=== PATIENT | female | born 1990 | race Caucasian/White ===

== ENCOUNTER → 2024-02-06 11:04 | Outpatient (REF) | payer BC, SELFPAY ==
[2024-02-13 21:24] LABS: HPV, High Risk Not Detected; HPV, High Risk Source Cervical
[2024-02-14 07:49] LABS: Chlamydia trachomatis,ThinPrep Negative (Negative); Neisseria gonorrhoeae,ThinPrep Negative (Negative); Specimen Source Cervical
== END ==
LOC: CPAP 11:04
PROVIDERS: ATTENDING PHYSICIAN Nurse Practitioner Family
DX: Z34.91 Encounter for supervision of normal pregnancy, unspecified, first trimester (principal); Z12.4 Encounter for screening for malignant neoplasm of cervix; Z11.51 Encounter for screening for human papillomavirus (HPV); Z11.3 Encounter for screening for infections with a predominantly sexual mode of transmission
CPT/HCPCS: 87491; 87591; 87624; G0123

== ENCOUNTER → 2024-02-11 07:38 | Outpatient (REF) | payer BC, SELFPAY ==
[2024-02-11 08:46] LABS: Urine Albumin Negative (Neg - Trace); Urine Bilirubin Negative (Negative); Urine Character Clear (Clear); Urine Color Yellow; Urine Glucose Negative (Negative); Urine Ketone Negative (Negative); Urine Leukocyte Negative (Negative); Urine Nitrite Negative (Negative); Urine Occult Blood Negative (Negative); Urine Specific Gravity 1.025 (<1.030); Urine Urobilinogen Negative (Neg - 1+)
[2024-02-11 08:51] LABS: % Basophils 0.7 % (0-2); % Eosinophils 1.2 % (0-6); % Immature Granulocytes 0.4 % (0-0.5); % Lymphocytes 23.6 % (20.5-51.1); % Monocytes 6.9 % (1.7-9.3); % Neutrophils 67.2 % (42.2-75.2); Absolute Basophils 0.1 10^3/uL (0-0.2); Absolute Eosinophils 0.1 10^3/uL (0-0.7); Absolute Lymphocytes 1.8 10^3/uL (1.2-3.4); Absolute Monocytes 0.5 10^3/uL (0.1-0.6); Absolute Neutrophils 5.1 10^3/uL (1.4-6.5); Hematocrit 37.6 % (37.0-47.0); Hemoglobin 12.6 g/dL (12.0-16.0); Mean Corp Hgb Conc. 33.5 g/dL (33.0-37.0); Mean Corpuscular Hgb 26.3 pg (27.0-31.0); Mean Corpuscular Volume 78.3 fL (81.0-99.0); Mean Platelet Volume 10.1 fL (7.4-10.4); Nucleated Red Blood Cells % 0 %; Platelet Count 355 10^3/uL (130-400); White Blood Cell Count 7.6 10^3/uL (4.8-10.8)
[2024-02-11 13:47] LABS: Glycohemoglobin (HgbA1c) 5.8 % (4.0-5.6)
[2024-02-12 18:34] LABS: Hepatitis B Surface Antigen Negative (Negative)
[2024-02-12 18:51] LABS: Hepatitis C Antibody Negative (Negative)
[2024-02-12 19:28] LABS: Rubella Positive
[2024-02-13 13:45] LABS: Syphilis/T. pallidum Ab Reflex Negative (Negative)
== END ==
LOC: REG 07:38
PROVIDERS: ATTENDING PHYSICIAN Nurse Practitioner Family
DX: Z32.01 Encounter for pregnancy test, result positive (principal)
CPT/HCPCS: 36415; 80055; 81003; 83036; 86803; 86850; 86900; 86901; 87086

== ENCOUNTER → 2024-03-24 07:54 | Outpatient (REF) | payer BC, SELFPAY | LOC: PNTC 07:54 | PROVIDERS: ATTENDING PHYSICIAN Obstetrics & Gynecology | DX: Z36.0 Encounter for antenatal screening for chromosomal anomalies (principal); Z36.82 Encounter for antenatal screening for nuchal translucency | CPT/HCPCS: 36415; 76801; 76813 ==

== ENCOUNTER → 2024-04-15 07:53 | Outpatient (REF) | payer BC, SELFPAY | LOC: PNTC 07:53 | PROVIDERS: ATTENDING PHYSICIAN Obstetrics & Gynecology | DX: O99.210 Obesity complicating pregnancy, unspecified trimester (principal) | CPT/HCPCS: 76805 ==

== ENCOUNTER → 2024-05-11 07:45 | Outpatient (REF) | payer BC, SELFPAY ==
[2024-05-11 11:05] LABS: 1 Hour after 50gm 127 mg/dl
[2024-05-11 12:40] LABS: HIV Combo Negative (Negative)
== END ==
LOC: REG 07:45
PROVIDERS: ATTENDING PHYSICIAN Obstetrics & Gynecology; FAMILY PHYSICIAN Physician Assistant
DX: Z34.82 Encounter for supervision of other normal pregnancy, second trimester (principal)
CPT/HCPCS: 36415; 82950; 87389

== ENCOUNTER → 2024-05-17 07:54 | Outpatient (REF) | payer BC, SELFPAY | LOC: PNTC 07:54 | PROVIDERS: ATTENDING PHYSICIAN Obstetrics & Gynecology | DX: O99.210 Obesity complicating pregnancy, unspecified trimester (principal) | CPT/HCPCS: 76811 ==

== ENCOUNTER → 2024-06-23 15:42 | Outpatient (REF) | payer BC, SELFPAY | LOC: PNTC 15:42 | PROVIDERS: ATTENDING PHYSICIAN Obstetrics & Gynecology | DX: O99.210 Obesity complicating pregnancy, unspecified trimester (principal) | CPT/HCPCS: 76816 ==

== ENCOUNTER → 2024-07-12 08:33 | Outpatient (REF) | payer BC, SELFPAY ==
[2024-07-12 10:17] LABS: % Basophils 0.2 % (0-2); % Immature Granulocytes 0.6 % (0-0.5); % Lymphocytes 17.2 % (20.5-51.1); % Monocytes 6.4 % (1.7-9.3); % Neutrophils 74.6 % (42.2-75.2); Absolute Eosinophils 0.1 10^3/uL (0-0.7); Absolute Immature Granulocytes 0.1 10^3/uL (0-0.05); Absolute Lymphocytes 1.6 10^3/uL (1.2-3.4); Absolute Monocytes 0.6 10^3/uL (0.1-0.6); Absolute Neutrophils 6.9 10^3/uL (1.4-6.5); Hematocrit 32.4 % (37.0-47.0); Hemoglobin 10.5 g/dL (12.0-16.0); Mean Corp Hgb Conc. 32.4 g/dL (33.0-37.0); Mean Corpuscular Hgb 26.4 pg (27.0-31.0); Mean Corpuscular Volume 81.6 fL (81.0-99.0); Mean Platelet Volume 9.7 fL (7.4-10.4); Nucleated Red Blood Cells % 0 %; Platelet Count 279 10^3/uL (130-400); Red Blood Cell Count 3.97 10^6/uL (4.20-5.40); Red Cell Dist. Width 13.7 % (11.5-14.5); White Blood Cell Count 9.3 10^3/uL (4.8-10.8)
[2024-07-12 11:35] LABS: 1 Hour after 50gm 129 mg/dl
[2024-07-12 12:16] LABS: HIV Combo Negative (Negative)
[2024-07-13 12:38] LABS: Syphilis/T. pallidum Ab Reflex Negative (Negative)
== END ==
LOC: REG 08:33
PROVIDERS: ATTENDING PHYSICIAN Obstetrics & Gynecology; FAMILY PHYSICIAN Physician Assistant
DX: Z34.80 Encounter for supervision of other normal pregnancy, unspecified trimester (principal)
CPT/HCPCS: 36415; 82950; 85025; 86780; 87389

== ENCOUNTER → 2024-08-03 07:59 | Outpatient (REF) | payer BC, SELFPAY | LOC: PNTC 07:59 | PROVIDERS: ATTENDING PHYSICIAN Obstetrics & Gynecology | DX: O99.210 Obesity complicating pregnancy, unspecified trimester (principal) | CPT/HCPCS: 76816 ==

== ENCOUNTER → 2024-09-02 08:19 | Outpatient (REF) | payer BC, SELFPAY | LOC: CLAB 08:19 | PROVIDERS: ATTENDING PHYSICIAN Student in an Organized Health Care Education/Training Program | DX: Z36.85 Encounter for antenatal screening for Streptococcus B (principal) | CPT/HCPCS: 87070 ==

== ENCOUNTER 2024-09-28 19:46 | Inpatient (IN) | payer BC, SELFPAY ==
[2024-09-28 19:49] VITALS: BMI 33.6
[2024-09-28 20:53] VITALS: BP 118/77
[2024-09-28 20:56] LABS: % Basophils 0.3 % (0-2); % Eosinophils 0.9 % (0-6); % Immature Granulocytes 0.3 % (0-0.5); % Lymphocytes 15.6 % (20.5-51.1); % Monocytes 9.5 % (1.7-9.3); % Neutrophils 73.4 % (42.2-75.2); Absolute Eosinophils 0.1 10^3/uL (0-0.7); Absolute Lymphocytes 1.8 10^3/uL (1.2-3.4); Absolute Monocytes 1.1 10^3/uL (0.1-0.6); Absolute Neutrophils 8.6 10^3/uL (1.4-6.5); Hematocrit 33.4 % (37.0-47.0); Hemoglobin 11.2 g/dL (12.0-16.0); Mean Corp Hgb Conc. 33.5 g/dL (33.0-37.0); Mean Corpuscular Hgb 25.6 pg (27.0-31.0); Mean Corpuscular Volume 76.3 fL (81.0-99.0); Mean Platelet Volume 10.2 fL (7.4-10.4); Nucleated Red Blood Cells % 0 %; Platelet Count 303 10^3/uL (130-400); Red Blood Cell Count 4.38 10^6/uL (4.20-5.40); Red Cell Dist. Width 14.6 % (11.5-14.5); White Blood Cell Count 11.7 10^3/uL (4.8-10.8)
[2024-09-29] MEDS: LR 1000 IV (05:11)
[2024-09-29] MEDS: PITOCIN 30 UNITS/NSS 500 ML IV (05:12)
[2024-09-29] MEDS: FENTANYL/BUPIVACAINE 100 EPIDURAL (10:57)
[2024-09-29] MEDS: SUBLIMAZE 100 MCG EPIDURAL (10:57)
[2024-09-29] MEDS: TYLENOL 650 MG PO ×2 (14:49→20:38)
[2024-09-29] MEDS: MOTRIN 600 MG PO ×2 (14:50→20:38)
[2024-09-30] MEDS: MOTRIN 600 MG PO ×3 (03:39→17:51)
[2024-09-30] MEDS: TYLENOL 650 MG PO ×3 (03:40→17:51)
[2024-09-30 04:03] LABS: Hematocrit 32.2 % (37.0-47.0); Hemoglobin 10.8 g/dL (12.0-16.0)
[2024-09-30] MEDS: FEOSOL 325 MG PO (07:55)
[2024-09-30] MEDS: PRENATAL PLUS 1 TABLET PO (07:55)
[2024-09-30] MEDS: SENOKOT-S 1 TABLET PO (10:13)
[2024-10-01] MEDS: TYLENOL 650 MG PO (02:21)
[2024-10-01] MEDS: MOTRIN 600 MG PO (02:21)
[2024-10-01] MEDS: SENOKOT-S 1 TABLET PO (07:55)
[2024-10-01] MEDS: FEOSOL 325 MG PO (07:55)
[2024-10-01] MEDS: PRENATAL PLUS 1 TABLET PO (07:55)
[2024-10-01 10:53] LABS: Syphilis/T. pallidum Ab Reflex Negative (Negative)
== END 2024-10-01 10:52 | disposition home or self-care (01) | DRG 807 ==
LOC: LDRP 19:46
PROVIDERS: Student in an Organized Health Care Education/Training Program; ADMITTING PHYSICIAN Obstetrics & Gynecology; FAMILY PHYSICIAN Physician Assistant
PROC: 0KQM0ZZ Repair Perineum Muscle, Open Approach (ICD-10-PCS; 2024-09-29)
PROC: 10E0XZZ Delivery of Products of Conception, External Approach (ICD-10-PCS; 2024-09-29)
DX: O70.1 Second degree perineal laceration during delivery (principal); Z37.0 Single live birth; Z3A.39 39 weeks gestation of pregnancy
CPT/HCPCS: 36415; 85014; 85018; 85025; 86780; 86850; 86900; 86901

== ENCOUNTER → 2025-05-12 08:20 | Outpatient (REF) | payer BC, SELFPAY ==
[2025-05-12 09:35] LABS: Hematocrit 37.7 % (37.0-47.0); Hemoglobin 12.5 g/dL (12.0-16.0); Mean Corp Hgb Conc. 33.2 g/dL (33.0-37.0); Mean Corpuscular Volume 80.7 fL (81.0-99.0); Nucleated Red Blood Cells % 0 %; Platelet Count 317 10^3/uL (130-400); Red Cell Dist. Width 15.6 % (11.5-14.5)
[2025-05-12 11:15] LABS: ALT (SGPT) 18 U/L (0-35); AST (SGOT) 18 U/L (14-36); Albumin 4.5 g/dl (3.5-5.0); Alkaline Phosphatase 80 U/L (38-126); Blood Urea Nitrogen 10 mg/dl (7-17); Calcium 8.9 mg/dl (8.4-10.2); Carbon Dioxide 26 mmol/L (22-30); Chloride 104 mmol/L (98-107); Glucose 83 mg/dl (70-99); HDL Cholesterol 44 mg/dl; Iron 55 ug/dl (37-170); LDL Cholesterol, Calculated 75 mg/dl; Potassium 4.4 mmol/L (3.5-5.1); Sodium 137 mmol/L (135-145); Total Protein 7.8 g/dl (6.3-8.2); Very Low Density Lipoprotein 21 mg/dl (0-30); eGFR > 60.00
[2025-05-12 11:24] LABS: Total Iron Binding Capacity 355 ug/dl (265-497)
[2025-05-12 11:49] LABS: Ferritin 19.2 ng/ml (6.24-137)
[2025-05-12 14:01] LABS: Glycohemoglobin (HgbA1c) 5.6 % (4.0-5.6)
== END ==
LOC: REG 08:20
PROVIDERS: ATTENDING PHYSICIAN Physician Assistant
DX: Z86.2 Personal history of diseases of the blood and blood-forming organs and certain disorders involving the immune mechanism (principal); R73.01 Impaired fasting glucose; F32.A Depression, unspecified; Z13.220 Encounter for screening for lipoid disorders; Z13.29 Encounter for screening for other suspected endocrine disorder
CPT/HCPCS: 36415; 80053; 80061; 82728; 83036; 83540; 83550; 84443; 85025